=== PATIENT | female | born 1955 | race Caucasian/White ===

== ENCOUNTER 2019-07-31 16:36 | Observation (INO) ==
[2019-07-31] MEDS ORDERED: Aspirin 81 MG TAB.CHEW PO ONE (16:52)
[2019-07-31 17:39] LABS: Basophils # 0.1 K/mcL (0.0-0.2); Basophils % 0.8 %; Eosinophils % 0.6 %; Hematocrit 42.1 % (35.3-44.9); Immature Granulocytes % 0.3 % (0-4); Lymphocytes # 1.6 K/mcL (0.6-4.6); Lymphocytes % 24.6 %; Mean Corpuscular HGB Conc 35.6 g/dL (31.6-35.5); Mean Corpuscular Hemoglobin 32.4 pg (28.0-33.3); Mean Corpuscular Volume 90.9 fL (83.0-100.0); Mean Platelet Volume 10.7 fL (9.4-12.4); Monocytes # 0.4 K/mcL (0.0-1.3); Monocytes % 6.2 %; Neutrophils # 4.5 K/mcL (1.6-8.9); Platelet Count 265 K/mcL (140-400); Red Blood Count 4.63 M/mcL (3.82-4.97); Red Cell Distribution Width 12.4 % (11.5-14.5); Segmented Neutrophils % 67.5 %; White Blood Count 6.6 K/mcL (4.3-11.1)
[2019-07-31 17:44] LABS: Prothrombin Time 11.5 Seconds (9.4-12.1)
[2019-07-31 17:46] LABS: Activated Partial Thrombo Time 30.8 Seconds (26.0-36.0)
[2019-07-31 17:59] LABS: Albumin 4.5 g/dL (3.5-5.7); Albumin/Globulin Ratio 1.6 (1.1-2.2); Bilirubin,Direct 0.1 mg/dL (0.0-0.2); Bilirubin,Indirect 0.4 mg/dL (0.0-1.0); Bilirubin,Total 0.5 mg/dL (0.3-1.0); Globulin 2.8 g/dL (2.4-3.5); Total Protein 7.3 g/dL (6.4-8.9)
[2019-07-31 18:01] LABS: BUN/Creatinine Ratio 14 (6-26); Blood Urea Nitrogen 8 mg/dL (8-23); Calcium 9.3 mg/dL (8.6-10.3); Carbon Dioxide 24 mEq/L (23-29); Chloride 107 mEq/L (98-107); Glucose 85 mg/dL (70-105); Osmolality,Calculated 288 (280-300); Sodium 140 mEq/L (136-145); Troponin I < 0.03 ng/mL (< 0.04); eGFR For African Americans > 60 (> 60); eGFR For Non-African Americans > 60 (> 60)
[2019-07-31] MEDS ORDERED: Naloxone 0.4 MG/ML INJ IVP PRN (19:31)
[2019-07-31] MEDS ORDERED: Nitroglycerin 0.4 MG TAB.SUBL SL PRN (19:52)
[2019-07-31] MEDS ORDERED: Pantoprazole 40 MG VIAL IVP ONE (20:17)
[2019-08-01] MEDS ORDERED: *HR* Heparin 5,000 UNIT/ML VIAL SQ SCH (06:00)
[2019-08-01] MEDS ORDERED: Regadenoson 0.4 MG/5 ML SYRINGE IVP ONE (07:30)
[2019-08-01 11:19] VITALS: BP 115/63
== END 2019-08-01 13:51 | disposition home or self-care (01) ==
LOC: EMEROOARM 16:36 → 3BNU 16:36
PROVIDERS: ADMIT Internal Medicine; ATTEND Internal Medicine

== ENCOUNTER 2022-02-08 22:26 | Inpatient (IN) ==
[2022-02-08] MEDS ORDERED: Ondansetron 4 MG/2 ML VIAL IVP STA (23:20)
[2022-02-08] MEDS ORDERED: Morphine Sulfate 2 MG/ML SYRINGE IVP ONE (23:20)
[2022-02-08] MEDS ORDERED: 0.9 % Sodium Chloride 1,000 ML IVC ONE (23:36)
[2022-02-08] MEDS ORDERED: *HR* HYDROmorphone (PF) 1 MG/ML SYRINGE IVP ONE (23:56)
[2022-02-08] MEDS ORDERED: Ketorolac 30 MG/ML VIAL IVP ONE (23:56)
[2022-02-09 00:36] LABS: Basophils # 0.1 K/mcL (0.0-0.2); Basophils % 0.5 %; Eosinophils % 0.2 %; Hematocrit 39.5 % (35.3-44.9); Hemoglobin 13.8 g/dL (11.5-15.4); Immature Granulocytes % 0.4 % (0-4); Lymphocytes # 1.5 K/mcL (0.6-4.6); Lymphocytes % 12.2 %; Mean Corpuscular HGB Conc 34.9 g/dL (31.6-35.5); Mean Corpuscular Hemoglobin 32.3 pg (28.0-33.3); Mean Corpuscular Volume 92.5 fL (83.0-100.0); Mean Platelet Volume 10.8 fL (9.4-12.4); Monocytes # 0.8 K/mcL (0.0-1.3); Monocytes % 6.7 %; Neutrophils # 10.1 K/mcL (1.6-8.9); Platelet Count 235 K/mcL (140-400); Red Blood Count 4.27 M/mcL (3.82-4.97); Red Cell Distribution Width 12.5 % (11.5-14.5); White Blood Count 12.6 K/mcL (4.3-11.1)
[2022-02-09 00:43] LABS: BUN/Creatinine Ratio 24 (6-26); Blood Urea Nitrogen 15 mg/dL (8-23); Calcium 9.2 mg/dL (8.6-10.3); Carbon Dioxide 23 mEq/L (23-29); Chloride 106 mEq/L (98-107); Glucose 113 mg/dL (70-105); Osmolality,Calculated 292 (280-300); Potassium 3.5 mEq/L (3.5-5.1); Sodium 140 mEq/L (136-145); eGFR For African Americans > 60 (> 60); eGFR For Non-African Americans > 60 (> 60)
[2022-02-09 00:47] LABS: INR 1.1; Prothrombin Time 11.7 Seconds (9.4-12.1)
[2022-02-09 00:49] LABS: Activated Partial Thrombo Time 26.3 Seconds (26.0-36.0)
[2022-02-09] MEDS ORDERED: Ondansetron 4 MG/2 ML VIAL IVP STA (01:21)
[2022-02-09] MEDS ORDERED: Famotidine 20 MG/2 ML VIAL IVP ONE (01:22)
[2022-02-09] MEDS ORDERED: Naloxone 0.4 MG/ML INJ IVP PRN ×3 (02:24→16:18)
[2022-02-09] MEDS ORDERED: *HR* HYDROmorphone (PF) 1 MG/ML SYRINGE IVP PRN ×2 (02:34→07:07)
[2022-02-09] MEDS ORDERED: 0.9 % Sodium Chloride 1,000 ML ONE (02:56)
[2022-02-09] MEDS ORDERED: D5% in Water 1,000 ML IVC PRN ×2 (03:17→16:18)
[2022-02-09] MEDS ORDERED: Dextrose Gel 15 GM/37.5 ML TUBE PO PRN ×4 (03:17→16:18)
[2022-02-09] MEDS ORDERED: *HR* Dextrose 50 % in Water (Syg) 50 ML SYRINGE IVP PRN ×2 (03:17→16:18)
[2022-02-09] MEDS ORDERED: *HR* OxyCODONE Immed Rel 5 MG TABLET PO PRN ×2 (07:05→16:18)
[2022-02-09] MEDS ORDERED: Ipratropium/Albuterol Neb 3 ML IH PRN ×2 (08:01→16:18)
[2022-02-09 08:24] LABS: Basophils # 0.1 K/mcL (0.0-0.2); Basophils % 0.5 %; Eosinophils % 0.3 %; Hematocrit 36.3 % (35.3-44.9); Hemoglobin 12.5 g/dL (11.5-15.4); Immature Granulocytes % 0.4 % (0-4); Lymphocytes # 1.8 K/mcL (0.6-4.6); Lymphocytes % 17.1 %; Mean Corpuscular HGB Conc 34.4 g/dL (31.6-35.5); Mean Corpuscular Hemoglobin 32.5 pg (28.0-33.3); Mean Corpuscular Volume 94.3 fL (83.0-100.0); Monocytes # 0.7 K/mcL (0.0-1.3); Monocytes % 6.7 %; Neutrophils # 7.7 K/mcL (1.6-8.9); Platelet Count 209 K/mcL (140-400); Red Blood Count 3.85 M/mcL (3.82-4.97); Red Cell Distribution Width 12.6 % (11.5-14.5); White Blood Count 10.2 K/mcL (4.3-11.1)
[2022-02-09 08:43] LABS: Alanine Aminotransferase 26 Units/L (7-52); Albumin 3.9 g/dL (3.5-5.7); Albumin/Globulin Ratio 1.9 (1.1-2.2); Alkaline Phosphatase 86 Units/L (34-104); Aspartate Amino Transferase 20 Units/L (13-39); BUN/Creatinine Ratio 26 (6-26); Bilirubin,Total 0.6 mg/dL (0.3-1.0); Blood Urea Nitrogen 15 mg/dL (8-23); Calcium 8.2 mg/dL (8.6-10.3); Carbon Dioxide 24 mEq/L (23-29); Chloride 109 mEq/L (98-107); Globulin 2.1 g/dL (2.4-3.5); Glucose 107 mg/dL (70-105); Osmolality,Calculated 289 (280-300); Potassium 3.7 mEq/L (3.5-5.1); Sodium 139 mEq/L (136-145); eGFR For African Americans > 60 (> 60); eGFR For Non-African Americans > 60 (> 60)
[2022-02-09] MEDS ORDERED: *HR* Propofol 200 MG/20 ML VIAL IVP ONE ×2 (08:52→12:37)
[2022-02-09] MEDS ORDERED: *HR* Midazolam HCl 2 MG/2 ML VIAL ONE (08:52)
[2022-02-09] MEDS ORDERED: *HR* FentaNYL (PF) 100 MCG/2 ML VIAL ONE (08:52)
[2022-02-09] MEDS ORDERED: Ondansetron 4 MG/2 ML VIAL ONE (09:09)
[2022-02-09] MEDS ORDERED: *HR* HYDROmorphone PF 0.5 MG/0.5 ML SYRINGE IVP PRN (09:30)
[2022-02-09] MEDS ORDERED: *HR* FentaNYL (PF) 100 MCG/2 ML VIAL IVP PRN (09:30)
[2022-02-09] MEDS ORDERED: Promethazine 6.25 MG in Water for inj. (sterile) 20 ML IVPB PRN (09:30)
[2022-02-09] MEDS ORDERED: Albuterol 2.5 MG/3 ML NEBULIZER IH PRN (09:30)
[2022-02-09] MEDS ORDERED: Scopolamine Patch 1.5 MG PATCH.TD72 TD ONE (09:31)
[2022-02-09] MEDS ORDERED: Ringers Solution, Lactated 1,000 ML IVC SCH ×2 (11:30→16:18)
[2022-02-09] MEDS ORDERED: Povidone-Iodine 45 ML, Sodium Chloride IRRigation 1,000 ML IR ONE (13:00)
[2022-02-09] MEDS ORDERED: TOTAL JOINT MIXTURE (100ML) INTRAART ONE (13:00)
[2022-02-09] MEDS ORDERED: Lacri-Lube 3.5 GM TUBE ONE (13:32)
[2022-02-09] MEDS ORDERED: Tranexamic Acid 1,000 MG/10 ML VIAL ONE (13:42)
[2022-02-09] MEDS ORDERED: Vancomycin 1,000 MG VIAL ONE (13:59)
[2022-02-09] MEDS ORDERED: CeFAZolin 2 GM/120 ML BAG IVPB SCH (16:18)
[2022-02-09] MEDS ORDERED: Sennosides 8.6 MG TABLET PO PRN (16:18)
[2022-02-09] MEDS ORDERED: MOM Conc 10 ML UD.LIQ PO PRN (16:18)
[2022-02-09] MEDS ORDERED: Ondansetron 4 MG/2 ML VIAL IVP PRN (16:18)
[2022-02-09] MEDS ORDERED: *HR* Promethazine 25 MG/ML VIAL IM PRN (16:18)
[2022-02-09] MEDS: Ascorbic Acid 500 MG TABLET PO SCH (16:48)
[2022-02-09] MEDS: Ketorolac 30 MG/ML VIAL IVP SCH (17:03)
[2022-02-09] MEDS ORDERED: *HR* Enoxaparin 40 MG/0.4 ML SYRINGE SQ SCH (18:00)
[2022-02-09] MEDS: CeFAZolin 2 GM/120 ML BAG IVPB SCH (21:37)
[2022-02-10] MEDS: Ketorolac 30 MG/ML VIAL IVP SCH ×3 (00:53→11:09)
[2022-02-10] MEDS: CeFAZolin 2 GM/120 ML BAG IVPB SCH (05:42)
[2022-02-10] MEDS ORDERED: amLODIPine 5 MG TABLET PO SCH (09:00)
[2022-02-10] MEDS: Multivit/Ca/Min/Fe/FA 1 TAB TABLET PO SCH (09:23)
[2022-02-10] MEDS: Ascorbic Acid 500 MG TABLET PO SCH ×2 (09:23→17:29)
[2022-02-10] MEDS ORDERED: Ringers Solution, Lactated 1,000 ML IVC SCH (10:30)
[2022-02-10 11:58] LABS: Red Cell Distribution Width 12.7 % (11.5-14.5)
[2022-02-10 12:00] LABS: Eosinophils % 0.3 %; Immature Platelets 8.8 % (1.1-6.1)
[2022-02-10 12:05] LABS: Basophils % 0.3 %; Hematocrit 29.1 % (35.3-44.9); Immature Granulocytes % 0.5 % (0-4); Lymphocytes # 1.3 K/mcL (0.6-4.6); Mean Corpuscular HGB Conc 34.4 g/dL (31.6-35.5); Mean Corpuscular Hemoglobin 33.3 pg (28.0-33.3); Mean Platelet Volume 11.3 fL (9.4-12.4); Monocytes # 0.9 K/mcL (0.0-1.3); Monocytes % 9.2 %; Nucleated Red Blood Cells 0.2 /100 WBC (0); Platelet Count 138 K/mcL (140-400); Segmented Neutrophils % 76.7 %; White Blood Count 10.1 K/mcL (4.3-11.1)
[2022-02-10 12:10] LABS: VBG HCO3 23 mEq/L (21-27); VBG PCO2 34 mmHg (41-51); VBG PH 7.43 pH Units (7.32-7.42); VBG PO2 193 mmHg (25-50)
[2022-02-10 12:10] LABS: Neutrophils # 7.8 K/mcL (1.6-8.9)
[2022-02-10 12:17] LABS: Alanine Aminotransferase 16 Units/L (7-52); Albumin 3.3 g/dL (3.5-5.7); Albumin/Globulin Ratio 1.6 (1.1-2.2); Alkaline Phosphatase 65 Units/L (34-104); Aspartate Amino Transferase 23 Units/L (13-39); BUN/Creatinine Ratio 35 (6-26); Bilirubin,Total 0.6 mg/dL (0.3-1.0); Blood Urea Nitrogen 19 mg/dL (8-23); Calcium 7.8 mg/dL (8.6-10.3); Carbon Dioxide 21 mEq/L (23-29); Chloride 106 mEq/L (98-107); Globulin 2.1 g/dL (2.4-3.5); Glucose 111 mg/dL (70-105); Osmolality,Calculated 283 (280-300); Potassium 3.3 mEq/L (3.5-5.1); Sodium 135 mEq/L (136-145); Total Protein 5.4 g/dL (6.4-8.9); eGFR For African Americans > 60 (> 60); eGFR For Non-African Americans > 60 (> 60)
[2022-02-10] MEDS ORDERED: Potassium Chloride Elixir 20 MEQ/15 ML UDC PO ONE (13:09)
[2022-02-10] MEDS: Lactulose Oral Soln 20 GM/30 ML UDC PO SCH ×2 (14:10→20:24)
[2022-02-10] MEDS: Ketorolac 30 MG/ML VIAL IVP PRN (17:29)
[2022-02-10] MEDS: Aspirin Enteric Coated 81 MG Tablet PO SCH (17:29)
[2022-02-11 05:12] LABS: Basophils % 0.3 %; Eosinophils # 0.2 K/mcL (0.0-0.6); Eosinophils % 2.1 %; Hematocrit 29.8 % (35.3-44.9); Immature Granulocytes % 0.4 % (0-4); Lymphocytes # 2.1 K/mcL (0.6-4.6); Lymphocytes % 22.3 %; Mean Corpuscular HGB Conc 33.6 g/dL (31.6-35.5); Mean Corpuscular Hemoglobin 32.3 pg (28.0-33.3); Mean Corpuscular Volume 96.1 fL (83.0-100.0); Mean Platelet Volume 10.9 fL (9.4-12.4); Monocytes # 0.7 K/mcL (0.0-1.3); Neutrophils # 6.2 K/mcL (1.6-8.9); Platelet Count 139 K/mcL (140-400); Red Cell Distribution Width 12.6 % (11.5-14.5); Segmented Neutrophils % 66.9 %; White Blood Count 9.2 K/mcL (4.3-11.1)
[2022-02-11 05:31] LABS: BUN/Creatinine Ratio 29 (6-26); Blood Urea Nitrogen 15 mg/dL (8-23); Calcium 7.7 mg/dL (8.6-10.3); Carbon Dioxide 26 mEq/L (23-29); Chloride 108 mEq/L (98-107); Glucose 98 mg/dL (70-105); Osmolality,Calculated 289 (280-300); Potassium 3.6 mEq/L (3.5-5.1); Sodium 139 mEq/L (136-145); eGFR For African Americans > 60 (> 60); eGFR For Non-African Americans > 60 (> 60)
[2022-02-11] MEDS: Ketorolac 30 MG/ML VIAL IVP PRN (06:49)
[2022-02-11 08:13] VITALS: BP 120/77; PULSE 100; TEMP 97.9; O2SAT 94
[2022-02-11] MEDS ORDERED: *HR* OxyCODONE/APAP 5/325 TABLET PO PRN (09:11)
[2022-02-11] MEDS: Aspirin Enteric Coated 81 MG Tablet PO SCH (09:18)
[2022-02-11] MEDS: Ascorbic Acid 500 MG TABLET PO SCH (09:18)
[2022-02-11] MEDS: Multivit/Ca/Min/Fe/FA 1 TAB TABLET PO SCH (09:20)
== END 2022-02-11 15:14 | disposition home or self-care (01) | DRG 522 ==
LOC: 4WAOSI 22:26 → EMEROOARM 22:26 → OBSVTOIN 02-09 01:32 → SUATTDRO 02-09 01:32 → 4WAOSI 02-09 02:15
PROVIDERS: ADMIT Internal Medicine; ATTEND Internal Medicine